=== PATIENT | female | born 1965 | race Caucasian/White ===

== ENCOUNTER → 2017-03-27 | Outpatient (CLI) | payer OTHER | LOC: MAMO 15:08 | DX: Z12.31 Encounter for screening mammogram for malignant neoplasm of breast (principal) | CPT/HCPCS: G0202 ==

== ENCOUNTER → 2020-09-10 | Outpatient (CLI) | payer OTHER | LOC: MAMO 10:24 | DX: N64.4 Mastodynia (principal); N63.20 Unspecified lump in the left breast, unspecified quadrant | CPT/HCPCS: 76641-LT; 77066; G0279 ==

== ENCOUNTER → 2021-12-22 | Outpatient (CLI) | payer OTHER | LOC: HEART 5 09:14 | DX: J44.9 Chronic obstructive pulmonary disease, unspecified (principal); R09.02 Hypoxemia; Z86.16 Personal history of COVID-19 | CPT/HCPCS: 94010 ==

== ENCOUNTER 2022-03-12 21:47 | Emergency (ER) | payer OTHER | END 2022-03-12 21:58 | disposition left against medical advice (07) | LOC: ER1 21:47 | DX: Z53.21 Procedure and treatment not carried out due to patient leaving prior to being seen by health care provider (principal) ==